=== PATIENT | female | born 1955 | race Caucasian/White ===

== ENCOUNTER 2022-07-30 10:00 | Outpatient (RCR) | payer MEDICARE, BC, SELFPAY ==
--- NOTE | 2022-06-08 17:13 | OT.OPOE ---
OT Outpatient Ortho Eval OT Outpatient Ortho Eval Start: 06/08/22 10:47 Freq: Status: Active Protocol: Document 06/08/22 10:59 SHRUTHI (Rec: 06/08/22 11:08 AMB [id number]) E-Signed By Candida Porras, OTR/L, CLT, GASOLINE ENGINE ASSEMBLER OT OP Ortho Eval Details Type Type Eval Complexity Low Outpatient History/Precautions Current Condition/Medical Diagnosis Treatment Diagnosis LUTeresa DeQuervain's Tenosynovitis Date of Onset 04/08/22 Medical Contraindications Heart Condition,Arthritis, Latex Allergy Medical/Functional History Medical History Reviewed Yes Prior Level of Function/Mobility Pt has had pain in her LUE for several months, possibly started last May when she fell on her LUE. Sx's seemed to get worse a few months ago when she had to drive a long distance and foudn herself gripping tightly onto the steering wheel. Pt was seen by LADY Hurt in orthopedics on 04/08/22. At that time, she received an injection of lidocaine and celestone which did not help vocational nurse. Pt has also tried rest, ice, ibuprofen, tylenol, celebrex and a thumb spica splint. Other PMH includes high cholesterol, C-spine arthritis , ezcema, prolonged QT, DVT in LLE, cardiac arythmia (had a defibrilator but it was removed 5 years ago) Oriented Mental Status No Concerns Ortho Subjective Subjective Subjective Pt states she did get partial relief following the steroid injection that she received in March, however, she still has pain most of the time. Pt rates her average pain at 2/10 but with certain activities that include gripping and pinching or incidentle fast movements of her hand, the pain can be 6/10. 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 Pt often has to ask her for help due to difficulty with holding and positioning her patients. Pt has worn a thumb spica splint that helped some. Pt still has pain that will wake her at night on occasion but most of her pain is during the activities as described above. Pt is not able to take a lot of OTC anti-inflammatories such as Aleve or Advil as they bother her stomach, she does get some relief with ice. Pain Assessment Pain Present Pain Present Pain Reported Location Left Wrist Description Burning,Radiating,Sharp,Dull, Achy,Cramping,Stabbing, Shooting Intensity Moderate Hand Pinch/Medical Imaging Technician Strength Hand Dominance Hand Dominance Right OT Objective Data Hand Hand Dominance Right Additional Information Objective Additional Information Pt demonstrates AROM of the LUE wrist flexion is 75, ext is 70, UD is 20, RD is 10. Medical Imaging Technician on the RUE is 52#, LUE is 45#. 3pt pinch on the RUE is 12#, LUE is 8#. Lateral pinch on the RUE is 12#, LUE is 10#. Pt does have pain with sales development coordinator and pinch strength testing. Pt demonstrates a (+) Orlando's and a (+) grind test on the LUE. Pt is also ttp along the CMC joint line. Upper Extremity Special Tests Tenosynovitis Wrist Finklestein Test Positive Left OT Problems Problems Problems Decreased Strength,Decreased Range of Motion,Decreased Dexterity,Gripping,Pinching Other Problems Opening Containers Patient Potential Good Assessment Assessment Assessment Pt presents with pain, weakness and limited ROM in the LUE hand/wrist/thumb with (+) s/s of deQuervain's tenosynovitis as well as CMC OA. Pt will benefit from skilled OT intervention to address sxs and restore full, pain-free use of her LUE. Ortho Goals Ortho Goals Goals 1. Pt will be independent and compliant with HEP in order to resume full, pain-free use of the involved UE. 3 weeks 2. Pt will demonstrate full, pain-free AROM of the involved UE in order to improve ability to grasp, hold, and position the animals she works with. 6 weeks 3. Pt will demonstrate pain- free sales development coordinator and pinch strength comparable to the uninvolved side in order to improve functional grasp, hold, reach, and lifting ability needed to complete self-care, leisure tasks, and work activities. 8 weeks. OT Outpatient Treatment Plan Ortho Plan Expected Frequency 1-2x Week Expected Duration 8-10 Weeks Treatment Plan Evaluation,Iontophoresis, Manual Therapy,Splinting, Ultrasound,Therapeutic Exercise,Therapeutic Activities Certification Certification I Certify That: Therapy Services Provided, Therapy Plan Established, Therapy Plan Reviewed
== END 2023-05-19 16:49 | disposition home or self-care (01) ==
PROVIDERS: PCP Family Medicine; Visit Provider Physician Assistant Surgical
DX: M65.4 Radial styloid tenosynovitis [de Quervain] (principal); Z51.89 Encounter for other specified aftercare
CPT/HCPCS: 80053; 80061; 82306; 97035; 97110; 97140; 97165; X5282

== ENCOUNTER 2022-11-09 15:35 | Outpatient (CLI) | payer MEDICARE, BC, SELFPAY ==
--- NOTE | 2022-11-09 15:40 | CRLHL7_ITS ---
For Patients: As a result of the Century Cures Act, medical imaging exams and procedure reports are released immediately into your electronic medical record. You may view this report before your referring provider. If you have questions, please contact your health care provider. BILATERAL SCREENING MAMMOGRAM WITH COMPUTER-AIDED DETECTION TECHNIQUE: CC and MLO views were obtained. These mammographic images have been obtained using full-field digital technique. These mammographic images were interpreted with the benefit of computer-aided detection. COMPARISON FILM: 10/28/21, 10/24/20, 10/23/19. FINDINGS: The breasts are heterogeneously dense, which may obscure small masses. IMPRESSION: There is no radiographic evidence for malignancy. ASSESSMENT: BI-RADS Category 1: Negative RECOMMENDATION: Routine screening mammogram in 1 year. A lay language report of this examination will be provided to the patient. RAYMOND GEORGE M.D. Diagnostic Radiologist [email or web address] Transcribed: 6:[address]/Dictated by: Raymond George MD @ 11/10/2022 9:25:00 AM (Electronically Signed)
== END 2022-11-09 15:36 | disposition home or self-care (01) ==
LOC: MAMMO 15:36
PROVIDERS: PCP Family Medicine; Visit Provider Family Medicine
DX: Z12.31 Encounter for screening mammogram for malignant neoplasm of breast (principal); R92.2 Inconclusive mammogram
CPT/HCPCS: 77067

== ENCOUNTER 2023-06-24 08:57 | Outpatient (CLI) | payer MEDICARE, BC, SELFPAY | END 2023-06-24 08:58 | disposition home or self-care (01) | PROVIDERS: PCP Family Medicine; Visit Provider Family Medicine | DX: E78.5 Hyperlipidemia, unspecified (principal); M85.80 Other specified disorders of bone density and structure, unspecified site; Z79.1 Long term (current) use of non-steroidal anti-inflammatories (NSAID) | CPT/HCPCS: 80053; 80061; 82306 ==

== ENCOUNTER 2023-10-28 10:01 | Outpatient (CLI) | payer MEDICARE, BC, SELFPAY ==
--- NOTE | 2023-10-28 10:15 | MR_ITS ---
[facility] [address] [facility] [address] Phone:?[phone] Fax:?[phone] Referring Physician Information: Daniel Villafana M.D. [address] [facility] [address] Phone:?[phone] Fax:?[phone] Patient:Troy Dai D.O.B:?1955 Sex:?Female Phone:?[phone] [facility] MRN:?[id number] Exam Date:?10/28/2023 EXAM: MRI of the RIGHT HIP, without contrast CLINICAL: Right hip strain. COMPARISONS: X-rays dated 06/03/2023. TECHNICAL: Multiplanar multisequence MRI of the right hip was obtained. Coronal large [id number] sequences of the pelvis/bilateral hips were also obtained. SEDATION: None. CONTRAST: None. FINDINGS: Hip joint: Physiologic volume of joint fluid. No convincing loose bodies. Grade 2 and 3 chondral loss is seen to involve the right hip joint. Labrum: There is tearing throughout the entire labrum. No perilabral cyst formation identified. Proximal femur: No evidence of fracture or osteonecrosis. No concerning osseous lesion. Acetabulum: No significant subchondral marrow edema, cystic change or fracture. Ligamentum teres: Intact and unremarkable. Pelvis osseous structures: No suspicious marrow signal alteration or fracture line. Sacroiliac joints are maintained without marrow signal changes to suggest sacroiliitis or significant arthrosis. No evident arthrosis or changes of osteitis pubis at the symphysis pubis. Myotendinous structures: Gluteus abductors: No convincing insertional tendinopathy or tear of gluteus minimus or medius. Adductors: No demonstrable tendinopathy or strain/tear. Hamstrings: There is mild partial tearing of the proximal right hamstring tendons at the ischial tuberosity attachment site. Flexors: Intact iliopsoas and rectus femoris, without strain/tear. External rotators: Intact. The ischiofemoral and quadratus femoris spaces are within normal limits. Gluteal aponeurotic fascia and IT band: Unremarkable. Bursae: No significant trochanteric or iliopsoas bursitis. Intrapelvic structures: Although evaluation of the intrapelvic structures is limited on this exam, no convincing pelvic mass is identified as visualized. IMPRESSION: 1. Tearing throughout the entire acetabular labrum. 2. Grade 2 and 3 chondral loss involving the right hip joint. 3. Mild partial tearing of the proximal right hamstring tendons at the ischial tuberosity attachment. 4. No evidence of fracture or avascular necrosis. JCZ Electronically signed on 10/28/2023 3:27:00 PM by Olivier Rosales D.O.
== END 2023-10-28 10:02 | disposition home or self-care (01) ==
LOC: MRI 10:02
PROVIDERS: PCP Family Medicine; Visit Provider Orthopaedic Surgery Sports Medicine
DX: M25.551 Pain in right hip (principal); S73.101A Unspecified sprain of right hip, initial encounter; S76.011A Strain of muscle, fascia and tendon of right hip, initial encounter
CPT/HCPCS: 73721

== ENCOUNTER 2023-11-18 10:03 | Outpatient (CLI) | payer MEDICARE, BC, SELFPAY ==
--- NOTE | 2023-11-18 10:15 | CRLHL7_ITS ---
For Patients: As a result of the Century Cures Act, medical imaging exams and procedure reports are released immediately into your electronic medical record. You may view this report before your referring provider. If you have questions, please contact your health care provider. BILATERAL SCREENING MAMMOGRAM WITH COMPUTER-AIDED DETECTION TECHNIQUE: CC and MLO views were obtained. These mammographic images have been obtained using full-field digital technique. These mammographic images were interpreted with the benefit of computer-aided detection. COMPARISON FILM: 11/09/22, 10/28/21, 10/24/20. FINDINGS: The breasts are heterogeneously dense, which may obscure small masses. IMPRESSION: There is no radiographic evidence for malignancy. ASSESSMENT: BI-RADS Category 1: Negative RECOMMENDATION: Routine screening mammogram in 1 year. A lay language report of this examination will be provided to the patient. RAYMOND GEORGE M.D. Diagnostic Radiologist [email or web address] Transcribed: 11/18/2023, 1:[address]/Dictated by: Raymond George MD @ 11/18/2023 12:03:00 PM (Electronically Signed)
== END 2023-11-18 10:04 | disposition home or self-care (01) ==
LOC: MAMMO 10:04
PROVIDERS: PCP Family Medicine; Visit Provider Family Medicine
DX: Z12.31 Encounter for screening mammogram for malignant neoplasm of breast (principal); R92.2 Inconclusive mammogram
CPT/HCPCS: 77063; 77067

== ENCOUNTER 2024-06-26 16:22 | Outpatient (CLI) | payer MEDICARE, BC, SELFPAY | END 2024-06-26 16:23 | disposition home or self-care (01) | LOC: NFLDREF 06-29 13:35 | PROVIDERS: PCP Family Medicine; Referring Provider Family Medicine; Visit Provider Family Medicine | DX: E78.5 Hyperlipidemia, unspecified (principal); I45.81 Long QT syndrome; M85.851 Other specified disorders of bone density and structure, right thigh; M85.852 Other specified disorders of bone density and structure, left thigh; Z79.1 Long term (current) use of non-steroidal anti-inflammatories (NSAID) | CPT/HCPCS: 80053; 80061; 82306 ==

== ENCOUNTER 2024-08-31 09:50 | Outpatient (CLI) | payer MEDICARE, BC, SELFPAY | END 2024-08-31 09:51 | disposition home or self-care (01) | LOC: NFLDREF 09:51 | PROVIDERS: PCP Family Medicine; Visit Provider Family Medicine | DX: K92.1 Melena (principal) | CPT/HCPCS: 82728 ==

== ENCOUNTER 2024-10-18 12:24 | Outpatient (CLI) | payer MEDICARE, BC, SELFPAY ==
--- OUTSIDE RECORDS SUMMARY | 2024-10-18 12:26 | XMS_ITS | Encounter Summary ---
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
--- OUTSIDE RECORDS SUMMARY | 2024-10-18 12:26 | XMS_ITS | Clinical Summary ---
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 Gender Identity Not on file Sexual Orientation Not on file Plan of Treatment Health Maintenance Due Date Last Done Comments ADVANCE CARE PLANNING 1955 ANNUAL REVIEW OF HM ORDERS 1955 CT COLONOGRAPHY 1955 DEXA 1955 FIT 1955 FLEX SIG 1955 GLUCOSE 1955 MAMMO SCREENING 1955 sDNA (Cologuard) 1955 COLONOSCOPY 1963 COLORECTAL CANCER SCREENING 1963 HEPATITIS C SCREENING 1971 DTAP/TDAP/TD IMMUNIZATION (1 - Tdap) 1978 LIPID 1993 ZOSTER IMMUNIZATION (2 of 3) 03/11/2014 01/14/2014 FALL RISK ASSESSMENT 2018 PHQ-2 (once per calendar year) 2023 COVID-19 Vaccine (3 - season) 2024 01/30/2021, 01/09/2021 INFLUENZA VACCINE (#1) 2024 , 08/13/2019, 08/18/2018, Additional history exists RSV VACCINE (1 - 1-dose 75+ series) 2028 Pneumococcal Vaccine: 65+ Years Completed 06/13/2020, 02/09/2019 HPV IMMUNIZATION Aged Out No longer e ligible based on patient's age to complete this topic MENINGITIS IMMUNIZATION Aged Out No l onger eligible based on patient's age to complete this topic RSV MONOCLONAL ANTIBODY Aged Out No l onger eligible based on patient's age to complete this topic Insurance [facility] BL[facility] Care Teams Clerk Secretary Relationship Specialty Start Date End Date No Ref-Primary, Physician PCP - General 01/09/21
--- OUTSIDE RECORDS SUMMARY | 2024-10-18 12:26 | XMS_ITS | Clinical Summary ---
Author Organization [facility] [place], [place] [address] Care Team Providers Care Account Executive Software Sales Name Role Phone Cristy Larson MD Primary Care Provider + Allergies Active Allergy Reactions Criticality Noted Date Comments Latex 04/19/2007 Morphine Anaphylaxis 04/19/2007 respitory depression Medications Medication Sig Dispensed Refills Start Date End Date Status MULTIVITAMIN ORAL TAB Take one tablet daily for vitamin supplementation ? 0 08/21/2002 Active aspirin 81 mg tabletIndications:Co ronary atherosclerosis of unspecified type of vessel, tulalip or graft Take 1 tablet by mouth once daily with a meal. 0 03/26/2013 Active clobetasol 0.05% (TEMOVATE 0.05% OINTMENT) 0.05 % ointment Apply 1 Drop topically to affected area(s) 2 times daily. 01/21/2015 Active acetaminophen-codein e, 300-30 mg, (TYLENOL #3) tablet Take 1 tablet by mouth every 6 hours if needed for Pain. Max acetaminophen dose: 4000mg in 24 hrs. 0 07/14/2015 Active ESTRACE 0.01 % (0.1 mg/gram) vaginal creamIndications:Pos tmenopausal atrophic vaginitis INSERT 2 GRAMS INTO THE VAGINA AT BEDTIME 180 g 0 09/24/2015 Active lactobac cmb #[id number] (PROBIOTIC AND ACIDOPHILUS) 300-250 million cell-mg cap Take by mouth. 0 01/16/2016 A ctive eszopiclone (LUNESTA) 3 mg tabletIndications:In somnia, unspecified TAKE 1 TABLET BY MOUTH EVERY NIGHT AT BEDTIME 30 tablet 0 08/05/2016 Active metoprolol succinate (TOPROL XL) 25 mg Sustained-Release tabletIndications:Co ronary artery disease without angina pectoris, unspecified vessel or lesion type, unspecified whether tulalip or transplanted heart TAKE 1 TABLET BY MOUTH EVERY DAY 90 tablet 04/15/2017 Active simvastatin (ZOCOR) 20 mg tablet Take 20 mg by mouth at bedtime. 05/27/2022 Active fluticasone (50 mcg per actuation) nasal solution (FLONASE) 06/22/2022 Active famotidine (PEPCID) 20 mg tablet Take 20 mg by mouth once daily. 05/27/2022 Active fluticasone (50 mcg per actuation) nasal solution (FLONASE)Indications :Dysfunction of right eustachian tube INHALE 2 SPRAYS INTO AFFECTED NOSTRILS ONCE DAILY 48 g 3 06/28/2022 Active polyethylene glycol-electrolyte (GOLYTELY) 236-22.74-6.74 -5.86 gram suspensionIndication s:Encounter for screening colonoscopy Drink 2 liters the day before the procedure and 2 liters 6 hours prior to procedure. 4000 mL 09/04/2024 Active Active Problems Problem Noted Date Diagnosed Date Vertigo 07/14/2015 Gastritis 07/14/2015 Routine adult health maintenance 01/24/2015 Overview (01/24/2015): Colonoscopy 01/2015 normal repeat in 10 years Insomnia, unspecified 07/02/2010 Prolonged QT interval Hyperlipidemia Resolved Problems Problem Noted Date Diagnosed Date Resolved Date S/P AICD 01/13/2015 Overview (01/13/2015): AICD removed in 2006 CORONARY ARTERY DISEASE 01/12 Other ill-defined and unknow n causes of morbidity and mortality 12/22/2010 Encounters Date Type Department Care Team Description 09/27/2024 3:30 PM LSAT INSTRUCTOR Office Visit [facility] [address] [place] [address] Yg Dutta MD CV General Cardiology Est 09/07/2024 Telephone [facility] [address] [place] [address] Francis Marr MD Questions (colonoscopy questions) 09/07/2024 Orders Only [facility] [address] [place] [address] Francis Marr MD <No scans attached> 09/05/[address] [address] Raymond Mckinley MD Medication Management 09/03/2024 Telephone [facility] [address] [place] [address] Francis Marr MD Questions 08/17/2024 Telephone [facility] [address] [place] [address] Francis Marr MD Questions (Referral ) 08/17/2024 Telephone [facility] [address] [place] [address] Cristy Larson MD from Last 3 Months Immunizations Name Administration Dates Next Due Influenza, IIV4 08/05/2016 Tdap 02/15/2012 Zoster (Zostavax-ZVL, live) 01/14/2014 Family History Medical History Relation Name Comments Cancer-breast Mother Relation Name Status Comments Mother Social History Tobacco Use Types Packs/Day Years Used Date Smoking Tobacco: Former Cigarettes Q uit: 11/14/1974 Smokeless Tobacco: Never Tobacco Cessation:Counseling Given: Yes Comments:Quit smokin Alcohol Use Standard Drinks/Week Comments Yes 2 (1 standard drink = 0.6 oz pur e alcohol) Social Connections Answer Date Recorded Frequency of Communication with Friends and Fami ly Not on file 11/14/2021 Financial Resource Strain Answer Date R ecorded Difficulty of Paying Living Expenses Not on file 11/14/2021 Difficulty of Paying Living Expenses Not on file 11/14/2021 Sex and Gender Information Value Date Recorded Sex Assigned at Not on file Gender Identity Not on file Sexual Orientation Not on file Obstetrics History Last Filed Vital Signs Vital Sign Reading Time Taken Comments Blood Pressure 124/74 07/31/2021 1:34 PM CDT Pulse 62 07/31/2021 1:34 PM CDT Temperature 36.6 C (97.9 F) 07/14/2015 8:52 AM CDT Respiratory Rate 16 07/31/2021 1:34 PM CDT Oxygen Saturation 96% 10/11/2016 10:20 AM LSAT INSTRUCTOR Inhaled Oxygen Concentration - - Weight 76.7 kg (169 lb 3.2 oz) 10/11/2016 10:20 AM LSAT INSTRUCTOR Height 168.3 cm (5' 6.26) 10/11/2016 10:[address] Body Mass Index 27.1 10/11/2016 10:20 AM LSAT INSTRUCTOR Plan of Treatment Upcoming Encounters Date Type Department Care Team (Late st Contact Info) Description 12/07/2024 10:15 AM LSAT INSTRUCTOR Office Visit [facility] [address] [place] [address] Francis Marr MD [address] [place] [address] Health Maintenance Due Date Last Done Comments Zoster (shingles) series for age 50+ (2 of 3) 03/11/2014 01/14/2014 Depression screening for age 12+ 01/15/2017 01/16/20 16 Mammogram for age 45-75 08/05/2017 08/05/20 16, 03/10/2015, 01/22/2014, Additional history exists BMI (ht and wt on same day) for age 18+ 10/11/2017 10/11/2016, 09/20/2016, 01/16/2016 DEXA/DXA scan for age 65+ 2018 Medicare Wellness for age 65+ 2018 Pneumococcal series for age 65+ (1 of 1 - PCV) 2018 Lipids for age 45-75 01/15/2021 01/16/2016, 01/24/2015, 01/14/2014, Additional history exists Tetanus booster 02/14/2022 02/15/2012, 02/15/2012 Influenza for age 65+ 07/15/2024 08/05/2016 Colonoscopy through age 75 01/24/2025 01/24/2015 Tdap Completed 02/15/2012 Hepatitis C screening for ag e 18-79 Completed 01/16/2016 COVID-19 vaccine series Completed 08/13/20 24, 08/14/2023, 09/23/2022, Additional history exists Procedures Procedure Name Priority Date/Time Associated Diagnosis Comments XR MAMMO BILAT SCREEN FFDM (IA) Routine 08/05/2016 3:18 PM CDT Visit for screening mammogram ANTI HCV Routine 01/16/2016 9:52 AM LSAT INSTRUCTOR Need for hepatitis C screening test LIPID PANEL W REFLEX MEASURED LDL Routine 01/16/2016 9:52 AM LSAT INSTRUCTOR Other hyperlipidemia from Last 3 Months or Most Recently Relevant to Health Maintenance Results * XR MAMMO BILAT SCREEN FFDM (08/05/2016 3:18 PM CDT) Anatomical Region Laterality Modality BREASTS, Breast Left, Breast Right Bilateral Mammography Impressions 08/06/2016 12:17 PM CDT There is no radiographic evidence for malignancy. Recommend annual mammograms. A lay language report of this examination will be provided to the patient. MAMMOGRAM ASSESSMENT: ACR 2 Benign Narrative 08/06/2016 12:17 PM CDT XR MAMMO BILAT SCREEN FFDM [G0202.0] CLINICAL HISTORY: This is an asymptomatic 60 y.o. patient. INDICATION FOR EXAM: Mammogram Screening. TECHNIQUE: CC & MLO views were obtained. This digital study was evaluated with the assistance of Computer-Aided Detection. COMPARISON FILMS: Yes 03/10/15 [facility] 01/22/14 [facility] FINDINGS: Mammographically, the breast tissue is heterogeneously dense, which could obscure detection of small masses. No suspicious masses or microcalcifications. Benign appearing calcifications within both breasts and Benign appearing asymmetry within left breast. Sarah De Los Santos MD MAMMO * (ABNORMAL) LIPID PANEL W REFLEX MEASURED LDL (01/16/2016 9:52 AM LSAT INSTRUCTOR) CHOLESTEROL,TOTAL 207(H) 100 - 199 mg/dL 01/16/2016 10:30 AM LSAT INSTRUCTOR [facility] TRIGLYCERIDES 149 <150 mg/dL 01/16/2016 10:30 AM LSAT INSTRUCTOR [facility] HDL CHOLESTEROL 48 >40 mg/dL 01/16/2016 10:30 AM LSAT INSTRUCTOR [facility] NON-HDL CHOLESTEROL 159(H) <145 mg/dl 01/16/2016 10:30 AM LSAT INSTRUCTOR [facility] CHOL/HDL RATIO 4.31 <4.50 01/16/2016 10:30 AM LSAT INSTRUCTOR [facility] LDL CHOLESTEROL 129 <=130 mg/dL 01/16/2016 10:30 AM LSAT INSTRUCTOR [facility] PATIENT STATUS FASTING 01/16/2016 10:30 AM LSAT INSTRUCTOR [facility] Blood specimen (specimen) BLOOD SPECIMEN / Unknown Venipuncture / Unknown 01/16/2016 9:52 AM LSAT INSTRUCTOR 01/16/2016 9:53 AM LSAT INSTRUCTOR Sarah De Los Santos MD CHEMISTRY [facility] [address] [place] [address], * ANTI HCV [[id number]] (01/16/2016 9:52 AM LSAT INSTRUCTOR) HEPATITIS C ANTIBODY Non-Reacti ve Non-Reacti ve 01/16/2016 5:12 PM LSAT INSTRUCTOR [facility] Blood specimen (specimen) BLOOD SPECIMEN / Unknown Venipuncture / Unknown 01/16/2016 9:52 AM LSAT INSTRUCTOR 01/16/2016 9:53 AM LSAT INSTRUCTOR Narrative [facility] - 01/16/2016 5:12 PM LSAT INSTRUCTOR Antibodies to HCV not detected; does not exclude the possibility of exposure to HCV. Sarah De Los Santos MD SEND OUTS [facility] [address] [place] [address], [place] from Last 3 Months or Most Recently Relevant to Health Maintenance Care Teams Account Executive Software Sales Relationship Specialty Start Date End Date Cristy Larson MD [address] [place] [address] PCP - General Family Practice 06/07/22
--- OUTSIDE RECORDS SUMMARY | 2024-10-18 12:26 | XMS_ITS | Referral Summary ---
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
--- NOTE | 2024-10-18 13:10 | W.ANESCHARGE ---
Anesthesia Charges Start Date/Time Anesthesia Start Date: 10/18/24 Anesthesia Start Time: 13:03 Stop Date/Time Anesthesia Stop Date: 10/18/24 Anesthesia Stop Time: 13:39 Summary Extremes of Age - Over 70 or under 1: MDA
--- NOTE | 2024-10-18 13:41 | P.ANES_ITS ---
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
== END 2024-10-18 12:25 | disposition home or self-care (01) ==
LOC: OP CLINIC 12:25
PROVIDERS: PCP Family Medicine; Visit Provider Surgery
DX: R19.5 Other fecal abnormalities (principal); D12.1 Benign neoplasm of appendix; D12.3 Benign neoplasm of transverse colon; K64.4 Residual hemorrhoidal skin tags
CPT/HCPCS: 00811; 45385; 88305; 99100; J2704

== ENCOUNTER 2024-12-14 11:20 | Outpatient (CLI) | payer MEDICARE, BC, SELFPAY ==
--- NOTE | 2024-12-14 11:30 | CRLHL7_ITS ---
For Patients: As a result of the Century Cures Act, medical imaging exams and procedure reports are released immediately into your electronic medical record. You may view this report before your referring provider. If you have questions, please contact your health care provider. BILATERAL SCREENING MAMMOGRAM WITH COMPUTER-AIDED DETECTION AND TOMOSYNTHESIS TECHNIQUE: CC and MLO views were obtained. These mammographic images have been obtained using full-field digital technique. These mammographic images were interpreted with the benefit of computer-aided detection. Breast Tomosynthesis was used in this interpretation. COMPARISON FILM: 11/18/23, 11/09/22, 10/28/21. FINDINGS: The breasts are heterogeneously dense, which may obscure small masses. IMPRESSION: There is no radiographic evidence for malignancy. ASSESSMENT: BI-RADS Category 2: Benign RECOMMENDATION: Routine screening mammogram in 1 year. A lay language report of this examination will be provided to the patient. Raymond Murdock M.D. Diagnostic Radiologist [email or web address] SP/Dictated by: Raymond Murdock MD @ 12/17/2024 8:36:00 AM (Electronically Signed)
== END 2024-12-14 11:21 | disposition home or self-care (01) ==
LOC: MAMMO 11:21
PROVIDERS: PCP Family Medicine; Visit Provider Family Medicine
DX: Z12.31 Encounter for screening mammogram for malignant neoplasm of breast (principal); R92.333 Mammographic heterogeneous density, bilateral breasts
CPT/HCPCS: 77063; 77067

== ENCOUNTER 2025-06-26 15:41 | Outpatient (CLI) | payer MEDICARE, BC, SELFPAY | END 2025-06-26 15:42 | disposition home or self-care (01) | LOC: NFLDREF 15:43 | PROVIDERS: PCP Family Medicine; Visit Provider Family Medicine | DX: E78.5 Hyperlipidemia, unspecified (principal) | CPT/HCPCS: 80061 ==